=== PATIENT | male | born 1945 | race Caucasian/White ===

== ENCOUNTER 2018-01-26 08:00 | Day surgery (SDC) | payer MEDICARE ==
[2018-01-25 16:58] VITALS: BMI 30.7
[~2018-01-26 08:00] MED LIST: EPINEPHrine 0.3 MG in Ophthalmic Irrigation Solution 500 ML FS SCH
[2018-01-26] MEDS ORDERED: Phenylephrine 2.5% Ophth Soln 5 ML BOT ONE (08:45)
[2018-01-26] MEDS ORDERED: Cyclopentolate 1% Opth Drop 2 ML BOT ONE (08:45)
[2018-01-26] MEDS ORDERED: Lidocaine 2% 10 ML INJ ONE (10:44)
[2018-01-26] MEDS ORDERED: Midazolam HCl 2 mg/2 ml Vial ONE (10:44)
[2018-01-26] MEDS ORDERED: Ondansetron HCl/PF 4 MG/2 ML Vial ONE ×2 (10:44→16:16)
[2018-01-26] MEDS ORDERED: Fentanyl 100 MCG/2 ML VIAL ONE (10:44)
[2018-01-26] MEDS ORDERED: PROPOFOL 20 ML ONE (10:44)
[2018-01-26] MEDS ORDERED: PROPOFOL 200 MG/20 ML VIAL ONE (16:16)
[2018-01-26] MEDS ORDERED: Lidocaine 1% PF 5 ML VIAL ONE (16:16)
--- NOTE | 2018-01-26 16:38 | OP ---
DATE OF PROCEDURE: 01/26/2018 PREOPERATIVE DIAGNOSIS: Dislocated intraocular lens, left eye. PROCEDURE: Pars plana vitrectomy, pars plana lensectomy and repositioning of IOL with suture. SURGEON: Rashaad Little M.D. ANESTHESIA: General endotracheal anesthesia. PROCEDURE IN DETAIL: The patient was identified in the preoperative holding area. Appropriate infor med consent for the planned surgical procedure on the left eye had been obtained. The patient was tr ansported to the operative suite. Appropriate cardiopulmonary monitoring was established. Local ane sthesia obtained using retrobulbar and modified Van Lint lid block using 50:50 mixture of 4% lidocain e, 0.75% bupivacaine. The patient was prepped and draped in the usual sterile manner for ophthalmic surgery on the left eye. Lid speculum was placed in the left eye. The 25-gauge trocars were placed through the conjunctiva and sclera supratemporally, inferotemporally, and supranasally. Infusion lizbeth e was placed inferotemporally. Light pipe and vitreous cutter were inserted into the eye. Core vitr ectomy was performed. Crystalline lens material was removed from the anterior chamber through an ant erior chamber paracentesis. A 20 gauge sclerotomy was created supratemporally and fragmatome was ins erted into the eye and the nucleus was emulsified and all lens fragments were removed. The IOL was p rolapsed into the anterior chamber and the haptics were fixated to the iris in the mid periphery usin g 10-0 Prolene suture. Optic was then reposited into the posterior chamber. Light pipe and vitreous cutter were inserted into the eye and residual cortical material was removed and the capsule was tri mmed back clear of the visual axis. No further holes, breaks or tears were identified on the retina. Sclerotomies were sutured closed with 7-0 Vicryl suture. Conjunctiva was closed with 6-0 plain gut suture. Retrobulbar Kenalog and subconjunctival Ancef were placed. Atropine and antibiotic ointmen t placed, and the eye was patched and shielded. Patient taken to postop recovery unit in good condit ion having suffered no immediate perioperative complications. DISCHARGE INSTRUCTIONS: The patient was instructed to keep patch and shield on, avoid lifting or francine ding, and follow up in the morning with Dr. Little.
== END 2018-01-26 14:50 | disposition home or self-care (01) ==
LOC: SDC 08:00
PROVIDERS: ATTEND Ophthalmology Retina Specialist
PROC: 08T53ZZ Resection of Left Vitreous, Percutaneous Approach (ICD-10-PCS; principal; 2018-01-26)
PROC: 08PK3JZ Removal of Synthetic Substitute from Left Lens, Percutaneous Approach (ICD-10-PCS; 2018-01-26)
PROC: 08RK3JZ Replacement of Left Lens with Synthetic Substitute, Percutaneous Approach (ICD-10-PCS; 2018-01-26)
DX: T85.22XA Displacement of intraocular lens, initial encounter (principal); I10 Essential (primary) hypertension; E78.5 Hyperlipidemia, unspecified; I25.10 Atherosclerotic heart disease of native coronary artery without angina pectoris; E10.9 Type 1 diabetes mellitus without complications; M19.90 Unspecified osteoarthritis, unspecified site; F17.210 Nicotine dependence, cigarettes, uncomplicated; Z79.52 Long term (current) use of systemic steroids; Z79.82 Long term (current) use of aspirin; Z79.899 Other long term (current) drug therapy; Z88.8 Allergy status to other drugs, medicaments and biological substances; Z98.42 Cataract extraction status, left eye; Z96.1 Presence of intraocular lens
CPT/HCPCS: J0171; J2001; J2250; J2405; J2704; J3010